=== PATIENT | male | born 2000 | race Caucasian/White ===

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

== ENCOUNTER 2023-06-19 09:13 | Emergency (ER) | payer MEDICAID ==
[~2023-06-19] VITALS: Ht 177.8 cm; Wt 127.2 kg
[2023-06-19] MEDS ORDERED: CEFD300C3 PO (10:52)
[2023-06-19 11:01] VITALS: BP 141/90; PULSE 123; RESP 18; TEMP 97.8; O2SAT 96
== END 2023-06-19 11:04 | disposition home or self-care (01) ==
LOC: ER 09:13
DX: J20.9 Acute bronchitis, unspecified (principal); J01.90 Acute sinusitis, unspecified; E78.00 Pure hypercholesterolemia, unspecified; I10 Essential (primary) hypertension; Z79.899 Other long term (current) drug therapy
CPT/HCPCS: 71045; 99283